=== PATIENT | male | born 1940 | race Asian ===

== ENCOUNTER 2025-01-15 12:10 | Emergency (ER) | payer MEDICARE, SELFPAY ==
[2025-01-15 12:35] VITALS: BP 153/81; PULSE 64
[2025-01-15] MEDS: Norepinephrine/D5W 8mg/250ml 8 MG/250 ML BAG 6.038 MG IV (12:35)
[2025-01-15 12:39] VITALS: BMI 22.8
[2025-01-15 12:44] VITALS: BP 152/87; PULSE 73; RESP 18; O2SAT 93
[2025-01-15 12:53] LABS: Basophils # (Auto) 0.1 Thou/mm3 (0.0-0.2); Basophils % (Auto) 1 % (0-2.5); Eosinophils # (Auto) 0.0 Thou/mm3 (0.0-0.5); Eosinophils % (Auto) 0 % (0-10); Hematocrit 38.5 % (41.0-53.0); Hemoglobin 12.3 g/dL (13.5-16.0); Immature Granulocytes Auto 0.59 Thou/mm3 (0.00-0.00); Lymphocytes # (Auto) 8.7 Thou/mm3 (1.0-4.8); Lymphocytes % (Auto) 46 % (10-50); Mean Corpuscular HGB Conc 31.9 g/dl (31.0-37.0); Mean Corpuscular Hemoglobin 31.2 pg (25.0-35.0); Mean Corpuscular Volume 98 fL (80-100); Monocytes # (Auto) 1.4 Thou/mm3 (0.0-0.8); Monocytes % (Auto) 8 % (0-12); Neutrophils # (Auto) 8.0 Thou/mm3 (1.8-7.7); Neutrophils % (Auto) 42 % (37-80); Nucleated Red Blood Cell # 0.12 Thou/mm3 (0.00-0.00); Nucleated Red Blood Cell % 1 /100 WBC (0); Platelet Count 206 Thou/mm3 (140-440); RDW Standard Deviation 54.5 fL (35.1-43.9); Red Blood Count 3.94 Miln/mm3 (4.50-5.90); White Blood Count 18.8 Thou/mm3 (3.8-10.6)
--- NOTE | 2025-01-15 12:59 | PC.RT ---
procedure being done at this time when completed will draw abg and sputum
--- NOTE | 2025-01-15 13:14 | PD.EDCPR ---
ED CPR RME/HPI General Chief Complaint: Cardiac Arrest/CPR Stated Complaint: CODE BLUE Time Seen by Provider: 01/15/25 12:27 Arrival date/time: 01/15/25 12:10 RME / HPI RME / HPI narrative: 84-year-old male arrives from his long-term facility in cardiopulmonary arrest. Last known normal was approximately 35 minutes prior to presentation here in the emergency room. Patient under original presenting rhythm to paramedics of asystole. A right proximal tibial intraosseous line was placed by paramedics and the patient received a total of 3 dosages of epinephrine IV without regaining pulses. The patient arrives here to our emergency room and pulseless electrical activity. Blood sugar was 173 at scene. No other history is available on this patient at this time. Related Data Allergies Allergy/AdvReac Type Severity Reaction Status Date / Time Beef Containing Products Allergy Verified 01/15/25 12:38 gluten Allergy Verified 01/15/25 12:38 pork derived (porcine) Allergy Verified 01/15/25 12:38 Review of Systems Review of Systems ROS Unobtainable: unobtainable due to medical condition ED Exam Narrative Physical exam: Generally patient is cachectic and comatose with CPR in progress, head is normocephalic atraumatic, eyes show pupils to be fixed and dilated, oropharynx shows an upper airway tube to be in place, lungs show equal breath sounds bilaterally with bagging, heart shows no auscultated but heart sounds, extremities show no palpable pulses to any of the extremities without edema, neurologic exam shows [place] Coma Scale of 3 Course Quality Measures none Orders Category Date Time Status EKG (ED ONLY) *Do not use* NOW Care 01/15/25 12:37 Active Emergency Titration Protocol Stat Care 01/15/25 12:41 Ordered Intubation NOW Care 01/15/25 12:40 Completed EKG (ED Only) Stat Exams 01/15/25 12:37 Ordered XR chest 1V portable Stat Exams 01/15/25 12:37 Ordered ABG [Arterial Blood Gas] Stat Lab 01/15/25 12:40 Ordered CBC Stat Lab 01/15/25 12:20 Completed CMP [Comprehensive Metabolic Panel] Stat Lab 01/15/25 12:25 Received Sputum Culture and Gram Stain Stat Lab 01/15/25 12:41 Ordered Troponin I Stat Lab 01/15/25 12:25 Received UA [Urinalysis] Stat Lab 01/15/25 12:38 Ordered Norepinephrine/D5W 8mg/250ml [Levophed in D5W 8mg/250ml Med 01/15/25 12:35 Active ] 8 mg in 250 ml IV 0.05 mcg/kg/min Sodium Chloride Rt Kasandra 10% [NS Rt Kasandra 10%] Med 01/15/25 12:40 Discontinued 5 ml INH X1 ONE Vasopressin in Ns Ivpb [Vasostrict/Ns Ivpb] Med 01/15/25 12:51 Active 20 unit in 100 ml IV 0.03 unit/min Sputum Induction PRN RT 01/15/25 12:45 Ordered Volume Ventilator Stat RT 01/15/25 Active Vital Signs Vital signs: Vital Signs Pulse Rate 73 01/15/25 12:44 Blood Pressure 152/87 H 01/15/25 12:44 Pulse Oximetry (%) 93 L 01/15/25 12:44 Fraction of Inspired Oxygen 100 01/15/25 12:44 Cardiac Arrest / CPR MDM Narrative MDM Narrative:: Patient's original rhythm at scene was asystole. His last known normal was approximately 35 minutes prior to arrival. Patient received 3 separate dosages of 1 mg of epinephrine through a right proximal tibia intraosseous line. Patient arrives here in [place]. Patient received multiple dosages of epinephrine and calcium gluconate here in the emergency room with regained pulses. Patient was hypotensive with systolic blood pressure of 80. Patient was started on both norepinephrine and vasopressin drips. A right femoral vein triple-lumen central catheter was placed by myself here in the emergency room using maximum sterile technique and barrier. Blood return was from all ports and all ports were flushed and sterilely dressed. Patient was intubated by myself and the emergency room is an 8.0 endotracheal tube placed at 23 cm at the lips with equal breath sounds bilaterally and good color change by capnography. Patient then went into asystolic arrest again. CPR was established and the patient again received multiple dosages of epinephrine as well as another 1000 mg of calcium chloride IV under the presumption that the patient could be hyperkalemic because he has been in pulseless electrical activity during much of the time during the code here in the emergency room. At no time was the patient in ventricular fibrillation or tachycardia. Pulses were never eventually regained on this patient. He was pronounced at 1:12 PM. Patient data External records reviewed:: Other (specify) Clinical information provided by:: none Social determinants that could affect healthcare access:: none Patient has the following chronic illnesses:: None How is presenting disease/condition affected by chronic disease/condition?: no chronic disease Evaluation data The following diagnostics were reviewed and interpreted by me:: other (specify) Lab and/or radiology exams considered but not ordered:: None Interpretation Summary: None Medications / Prescriptions Medications or Prescriptions considered but not ordered:: None Medication administrations:: Medication Administration History Norepinephrine/Dextrose (Levophed In D5w 8mg/250ml) 8 mg in 250 mls @ 6.038 mls/hr IV .Q24H PRN; Protocol PRN Reason: PER PROTOCOL Stop: 02/14/25 12:34 Vasopressin/Sodium Chloride (Vasostrict/Ns Ivpb) 20 unit in 100 mls @ 9 mls/hr IV .Q11H7M PRN; Protocol PRN Reason: PER PROTOCOL Stop: 02/14/25 12:50 Discontinued Medications Sodium Chloride (Sodium Chloride Rt 10% 15 Ml Nebu) 5 ml INH X1 ONE Stop: 01/15/25 12:41 None Consultations Consultation(s) initiated? (list below): No Diagnosis Most likely diagnosis given after review of the tests above:: None Admission Indicated Admission indicated?: not indicated Admission Request Was there a request for admission?: No Disposition Plan Disposition Plan: other (specify) Critical Care Time Critical Care Time Critical Care Time: Yes Total Critical Care Time (min.): 35 Attestation: Excluding other billable procedures Discharge Plan Plan Patient Disposition: Prescriptions/Referrals Referrals: Martita Collins MD [Primary Care Provider] - In 1 week Problem List Clinical Impression: Cardiopulmonary arrest Patient/Caregiver Discharge Instructions Print Language: Georgian
--- NOTE | 2025-01-15 17:25 | PC.NURSE ---
PT ARRIVED AT 1210, MOVED TO ED [facility] AT 1211, AT THAT TIME ED STAFF ASSUMED ACLS, AND CONTINUED CPR (SEE CODE SHEET). EMERGENCY TITRATION OF NOREPI GIVEN BY MD GIANG AT BEDSIDE. THIS RN CALLED [facility] 3X SPOKE W/DETECTIVE [employer] WHO ATTEMPTED TO TRANSFER THIS RN TO THEIR DISPATCH MULTIPLE TIMES HOWEVER THERE WAS NO ANSWER EVERY TIME. [employer] WAS CALLED THEY REFUSED PT, OPA#[phone] [employer] WAS BALJIT FROM [employer]. [employer] WAS CHOSEN FOR MORTUARY. [facility] WAS CALLED AT 1312
== END 2025-01-15 18:10 | disposition expired ==
PROVIDERS: Emergency Provider Emergency Medicine; PCP Hospitalist
DX: I46.9 Cardiac arrest, cause unspecified (principal); R64 Cachexia; Z68.22 Body mass index [BMI] 22.0-22.9, adult; R40.2432 Glasgow coma scale score 3-8, at arrival to emergency department
CPT/HCPCS: 31500; 36415; 36600; 80053; 81001; 82803; 84484; 85025; 87205; 92950; 94002; 99291; J0168; J3490